=== PATIENT | male | born 1955 | race Caucasian/White ===

== ENCOUNTER 2020-04-22 12:29 | Emergency (ER) | payer BC, SELFPAY ==
[2020-04-22 12:40] VITALS: BP 111/67; PULSE 66; RESP 18; TEMP 37; O2SAT 99
--- NOTE | 2020-04-22 13:09 | ED.SKABFB ---
HPI - Skin/Abscess/Foreign Bdy General Chief complaint: Skin/Abscess/Foreign Body Stated complaint: Cat Bite Source: patient and RN notes reviewed Mode of arrival: ambulatory History of Present Illness HPI narrative: This is a 65-year-old white male who presented to urgent care status post cat bite that occurred 3 to 4 weeks ago when his left lateral lower extremity above his ankle. According to patient he was outside at work patting a stray cat he attempted to walk her from the cat the cat grabbed him by his lower leg in bite him while at home he applied peroxide to the site. Area farhat more and became more edematous. Patient denies any drainage from the bite site. He has a dime size scar to the left lateral side of his leg above his ankle and another 1 approximately above dime size scar which is approximately 0.5 cm in size. The patient denies SOB, CP, palpitation, extremity numbness, lightheadedness, dizziness, constipation, drainage from site, warmth, diarrhea, chills, or fever. He does note that if he bumps into anything he experienced the most pain does not hurt a palpation. Related Data Home Medications Medication Instructions Recorded Confirmed duloxetine 60 mg PO DAILY 04/22/20 04/22/20 insulin glargine [Lantus Solostar 20 unit SUBCUT HS 04/22/20 04/22/20 U-100 Insulin] liraglutide [Victoza 3-[place]] 1.8 mg SUBCUT DAILY 04/22/20 04/22/20 lisinopril 2.5 mg PO DAILY 04/22/20 04/22/20 metformin 1,000 mg PO BID 04/22/20 04/22/20 pantoprazole 40 mg PO DAILY 04/22/20 04/22/20 simvastatin 20 mg PO DAILY 04/22/20 04/22/20 Allergies Allergy/AdvReac Type Severity Reaction Status Date / Time No Known Allergies Allergy Verified 04/22/20 12:48 Review of Systems Review of Systems: All systems reviewed & are unremarkable except as noted in HPI and below PMFSH Family History Family History Father Diabetes mellitus Family history of atrial fibrillation Sibling Diabetes mellitus Family history unknown Mother Family history of Hodgkin's lymphoma Social History Social History (Reviewed 04/22/20 @ 13:13 by MEGHNA Gong-CKarina Smoking status: Current every day smoker Alcohol intake: never Exam Narrative: Exam Narrative: GENERAL: This is a well-nourished, well-developed patient, in no apparent distress. HEAD: normocephalic, atraumatic. EYES: PERRL. Sclera clear/white. Vision is grossly intact. EARS: External ears normal, auditory canals clear and without drainage, TMs normal without perforation. Hearing grossly intact. NOSE: External nose normal with no obvious nasal discharge, nares without redness, no rhinorrhea. THROAT: Mucous membranes moist, posterior pharynx clear. NECK: Neck supple, non-tender without lymphadenopathy, masses or thyromegaly. CARDIOVASCULAR: Regular rate and rhythm without murmurs, gallops, or rubs. RESPIRATORY: Clear to auscultation. Breath sounds equal bilaterally. No wheezes, rales, or rhonchi. GASTROINTESTINAL: Abdomen soft, non-tender, nondistended. Bowel sounds are active. No hepato-splenomegaly, or palpable masses. No guarding. SKIN: warm, intact with no suspicious lesions or rash, good texture and turgor. NEURO: awake, alert, and oriented to person, place and time. There were no obvious focal neurologic abnormalities. Steady gait EXTREMITIES: Normal range of motion. Left lateral lower extremity with a quarter sized scar and approximately 0.5cm scar due to a cat bite. Erythema and edema surrounding both bite sites, no drainage noted BACK: Nontender without deformity or crepitance. No flank tenderness. Course Course Emergency Course: Patient was discharged home with Doxy to treat cat bite as well as cellulitis Vital Signs Vital signs: Vital Signs Temperature 98.6 F 04/22/20 12:40 Pulse Rate 66 04/22/20 12:40 Respiratory Rate 18 04/22/20 12:40 Blood Pressure 111/67 04/22/20 12:40 Pulse Oximetry 99
== END 2020-04-22 13:10 | disposition home or self-care (01) ==
PROVIDERS: Emergency Provider Nurse Practitioner
DX: S81.852A Open bite, left lower leg, initial encounter (principal); L03.116 Cellulitis of left lower limb; F17.200 Nicotine dependence, unspecified, uncomplicated
CPT/HCPCS: 99213; G0463